=== PATIENT | female | born 1940 ===

== ENCOUNTER 2020-02-26 06:00 | Day surgery (SDC) | payer OTHER ==
[2020-02-26] MEDS ORDERED: MACROBID 100 M100 MG PO (09:58)
[2020-02-26] MEDS ORDERED: ULTRACET PO (09:58)
== END 2020-02-26 14:55 | disposition home or self-care (01) ==
LOC: CIR.AMB 06:00
PROVIDERS: ATTEND Obstetrics & Gynecology Gynecology
DX: N81.11 Cystocele, midline (principal); Z20.828 Contact with and (suspected) exposure to other viral communicable diseases